=== PATIENT | female | born 1970 | race Two or more races ===

== ENCOUNTER 2020-05-01 05:54 | Emergency (ER) | payer OTHER ==
[~2020-05-01] VITALS: Ht 160 cm; Wt 76.7 kg
[2020-05-01] MEDS ORDERED: ISOSORBIDE DINI30 MG (06:19)
[2020-05-01] MEDS ORDERED: COZAAR100 MG (06:20)
[2020-05-01] MEDS ORDERED: ATORVASTATIN CA20 MG (06:20)
[2020-05-01] MEDS ORDERED: METFORMIN HCL850 MG (06:20)
[2020-05-01] MEDS ORDERED: NASAL MIST126 ML (06:21)
[2020-05-01] MEDS ORDERED: PLAVIX75 MG (06:21)
== END 2020-05-01 10:41 | disposition left against medical advice (07) ==
LOC: ER 05:54 → CPU-OBS 05:57 → ER 10:41
DX: R07.89 Other chest pain (principal); M54.89 Other dorsalgia
CPT/HCPCS: G0378; G0379; 93005